=== PATIENT | female | born 1945 | race Caucasian/White ===

== ENCOUNTER 2019-04-17 12:07 | Day surgery (SDC) | payer MEDICARE, MEDICAID ==
[~2019-04-17] VITALS: Ht 167.6 cm; Wt 128.2 kg
[~2019-04-17 12:07] MED LIST: SODIUM CHLORIDE 0.9% 1,000 ML ONE
[2019-04-17] MEDS ORDERED: LIDOCAINE/PF 2% 5 ML VIAL IM ONE (12:08)
[2019-04-17] MEDS ORDERED: PROPOFOL 1% 20 ML VIAL IVP ONE (12:08)
[2019-04-17] MEDS ORDERED: SODIUM CHLORIDE 0.9% 1,000 ML IV ONE (12:30)
[2019-04-17] MEDS ORDERED: LEVO100 PO (12:37)
[2019-04-17] MEDS ORDERED: METF-960 PO (12:37)
[2019-04-17] MEDS ORDERED: FLUT16H NASAL (12:37)
[2019-04-17] MEDS ORDERED: RIVA20TA PO (12:37)
[2019-04-17] MEDS ORDERED: MACR100 PO (12:37)
[2019-04-17] MEDS ORDERED: OXYB5XL PO (12:37)
[2019-04-17] MEDS ORDERED: CRAN200C5 PO (12:37)
[2019-04-17] MEDS ORDERED: ESCI20TA PO (12:37)
[2019-04-17] MEDS ORDERED: LORA10TA7 PO (12:37)
[2019-04-17] MEDS ORDERED: CALC-789 PO (12:37)
[2019-04-17] MEDS ORDERED: GLIP5 PO (12:37)
[2019-04-17] MEDS ORDERED: METO25XL PO (12:37)
[2019-04-17] MEDS ORDERED: SIMV-259 PO (12:37)
[2019-04-17 12:56] LABS: GLUCOMETER DEV NAME(LOC) SDS.; GLUCOSE,POINT OF CARE 125 MG/DL (70-110)
== END 2019-04-17 17:45 | disposition home or self-care (01) ==
LOC: SURGERY 12:07
PROVIDERS: ATTEND Internal Medicine Gastroenterology
DX: K52.9 Noninfective gastroenteritis and colitis, unspecified (principal); R13.10 Dysphagia, unspecified; K62.5 Hemorrhage of anus and rectum; K63.5 Polyp of colon; D17.5 Benign lipomatous neoplasm of intra-abdominal organs; K57.30 Diverticulosis of large intestine without perforation or abscess without bleeding; K64.0 First degree hemorrhoids; K20.8 Other esophagitis; K29.50 Unspecified chronic gastritis without bleeding; K28.9 Gastrojejunal ulcer, unspecified as acute or chronic, without hemorrhage or perforation; K22.8 Other specified diseases of esophagus; Z90.3 Acquired absence of stomach [part of]; Z98.0 Intestinal bypass and anastomosis status; Z88.0 Allergy status to penicillin; Z88.1 Allergy status to other antibiotic agents; Z88.2 Allergy status to sulfonamides; Z86.010 Personal history of colon polyps; E11.9 Type 2 diabetes mellitus without complications; I10 Essential (primary) hypertension; E78.00 Pure hypercholesterolemia, unspecified; I48.91 Unspecified atrial fibrillation; Z79.899 Other long term (current) drug therapy
CPT/HCPCS: 45385; 43239; 45380; 82962; 88305; 88312; 88313; C1769; J2704; J3490; J7030